=== PATIENT | male | born 1970 | race Caucasian/White ===

== ENCOUNTER 2024-07-30 13:24 | Emergency (ER) | payer BC | END 2024-07-30 14:33 | disposition home or self-care (01) | LOC: JD.ED 13:24 | DX: H66.003 Acute suppurative otitis media without spontaneous rupture of ear drum, bilateral (principal); H93.13 Tinnitus, bilateral; Z88.1 Allergy status to other antibiotic agents; Z88.8 Allergy status to other drugs, medicaments and biological substances; Z79.899 Other long term (current) drug therapy | CPT/HCPCS: 99283 ==